=== PATIENT | female | born 2000 | race African-American/Black ===

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

== ENCOUNTER 2021-11-13 10:08 | Inpatient (IN) ==
[2021-11-13] MEDS ORDERED: LACTATED RINGERS 1,000 ML IV ONE (10:57)
[2021-11-13] MEDS ORDERED: CITRIC ACID/SODIUM CITRATE 30 ML UDCUP PO ONE (11:52)
[2021-11-13] MEDS ORDERED: ceFAZolin 2,000 MG/50 ML DUPLEX IV ONE (11:52)
[2021-11-13] MEDS ORDERED: LACTATED RINGERS 1,000 ML IV SCH ×2 (12:00→15:00)
[2021-11-13] MEDS ORDERED: OXYTOCIN 10 UNIT/ML VIAL IM ONE (12:10)
[2021-11-13] MEDS ORDERED: FAMOTIDINE 20 MG/2 ML VIAL IV ONE (12:10)
[2021-11-13] MEDS ORDERED: OXYTOCIN 30 UNIT in DEXTROSE 5% LACTATED RINGERS 1,000 ML IV ONE (12:18)
[2021-11-13] MEDS ORDERED: OXYTOCIN/LR 30 UNIT/1,000 ML BAG IV ONE (12:22)
[2021-11-13 12:31] LABS: Basophils % 0.5 % (0.0-0.8); Eosinophils # 0.1 10*3/uL (0.0-0.87); Eosinophils % 1.4 % (0.00-10.9); Hematocrit 31.4 VOL% (35.7-47.0); Hemoglobin 9.5 GM/DL (12.0-16.0); Immature Granulocytes % 0.6 %; Immature Granulocytes Absolute 0.04 #; Lymphocytes # 1.6 10*3/uL (1.4-4.0); Lymphocytes % 24.4 % (21.3-54.2); Mean Corpuscular HGB Conc 30.3 GM/DL (32-36); Mean Corpuscular Volume 81.6 FL (87-102); Mean Platelet Volume 11.7 FL (9.6-12.0); Monocytes % 11.3 % (1.7-12.7); Neutrophils % 61.8 % (38.7-73.9); Platelet Count 175 T/CUMM (130-400); Red Blood Count 3.85 MC/CUMM (3.8-5.5); Red Cell Distribution Width 15.8 % (9.3-17.3); White Blood Count 6.5 T/CUMM (4-12)
[2021-11-13 12:35] LABS: Albumin 2.2 G/DL (3.4-5.0); Bilirubin,Total 0.5 MG/DL (0.20-1.00); Calcium 8.2 MG/DL (8.5-10.1); Osmolality,Calculated 275.3 MOS/KG (273-304); Potassium 3.6 MMOL/L (3.5-5.1); Total Protein 6.5 G/DL (6.4-8.2)
[2021-11-13] MEDS ORDERED: BUPIVACAINE SPINAL 0.75% 2 ML AMP SPINAL ONE (12:50)
[2021-11-13] MEDS ORDERED: ONDANSETRON 4 MG/2 ML VIAL ONE (12:51)
[2021-11-13] MEDS ORDERED: miSOPROStoL 200 MCG TABLET ONE (13:02)
[2021-11-13] MEDS ORDERED: METHYLERGONOVINE 0.2 MG/1 ML AMP ONE (13:02)
[2021-11-13] MEDS ORDERED: PHENYLEPHRINE 1 MG/10 ML SYRINGE IV ONE (14:01)
[2021-11-13] MEDS ORDERED: ACETAMINOPHEN INJ 1,000 MG/100 ML VIAL IV ONE (14:19)
[2021-11-13 14:44] LABS: Cord Arterial Blood HCO3 21.6 MMOL/L
[2021-11-13 14:45] LABS: Bilirubin,Urine Negative (Negative); Blood, Urine Moderate mg/dL (Negative); Glucose,Urine (UA) Negative (Negative); Ketones,Urine Negative (Negative); Mucus,Urine Occasional /LPF (Occasional); Nitrite,Urine Negative (Negative); Protein,Urine Negative; RBC,Urine 14 /HPF (0-4); Squamous Epithelial Cell,Urine Occasional /HPF (0-10); Urine Appearance CLEAR (Clear); Urine Color Yellow (Yellow); Urine Specific Gravity 1.011 (1.001-1.035)
[2021-11-13 14:46] LABS: Cord Venous Blood HCO3 23.4 MMOL/L; Cord Venous Blood PCO2 43.9 MMHG; Cord Venous Blood PO2 34.3
[2021-11-13] MEDS ORDERED: ACETAMINOPHEN 325 MG TABLET PO PRN (14:52)
[2021-11-13] MEDS ORDERED: SIMETHICONE CHEW 80 MG TABLET PO PRN (14:52)
[2021-11-13] MEDS ORDERED: OXYTOCIN/LR 20 UNIT/1,000 ML BAG IV ONE (14:52)
[2021-11-13] MEDS ORDERED: ONDANSETRON 4 MG/2 ML VIAL IV PRN (14:52)
[2021-11-13] MEDS ORDERED: RHO(D) IMMUNE GLOBULIN 300 MCG SYRINGE IM ONE (14:52)
[2021-11-13] MEDS ORDERED: HYDROmorphone 2 MG/1 ML VIAL IV ONE (16:58)
[2021-11-13] MEDS: DOCUSATE SODIUM 100 MG CAPSULE PO SCH (21:36)
[2021-11-13] MEDS: ACETAMINOPHEN 500 MG TABLET PO SCH (21:36)
[2021-11-13 22:03] LABS: Basophils % 0.3 % (0.0-0.8); Eosinophils # 0.1 10*3/uL (0.0-0.87); Eosinophils % 0.5 % (0.00-10.9); Hematocrit 28.7 VOL% (35.7-47.0); Hemoglobin 8.8 GM/DL (12.0-16.0); Immature Granulocytes % 0.4 %; Immature Granulocytes Absolute 0.04 #; Lymphocytes # 2.5 10*3/uL (1.4-4.0); Lymphocytes % 26.7 % (21.3-54.2); Mean Corpuscular HGB Conc 30.7 GM/DL (32-36); Mean Corpuscular Volume 80.4 FL (87-102); Mean Platelet Volume 11.2 FL (9.6-12.0); Monocytes % 9.3 % (1.7-12.7); Neutrophils % 62.8 % (38.7-73.9); Platelet Count 148 T/CUMM (130-400); Red Blood Count 3.57 MC/CUMM (3.8-5.5); Red Cell Distribution Width 15.4 % (9.3-17.3); White Blood Count 9.3 T/CUMM (4-12)
[2021-11-13 23:46] LABS: Platelet Estimate Adequate
[2021-11-13 23:48] LABS: Microcytosis 1+; Polychromasia 1+
[2021-11-14] MEDS: ACETAMINOPHEN 500 MG TABLET PO SCH (03:00)
[2021-11-14 06:11] LABS: Basophils % 0.4 % (0.0-0.8); Eosinophils # 0.1 10*3/uL (0.0-0.87); Eosinophils % 1.4 % (0.00-10.9); Hematocrit 26.9 VOL% (35.7-47.0); Hemoglobin 8.3 GM/DL (12.0-16.0); Immature Granulocytes % 0.4 %; Immature Granulocytes Absolute 0.03 #; Lymphocytes # 2.8 10*3/uL (1.4-4.0); Lymphocytes % 33.2 % (21.3-54.2); Mean Corpuscular HGB Conc 30.9 GM/DL (32-36); Mean Corpuscular Volume 80.5 FL (87-102); Mean Platelet Volume 11.8 FL (9.6-12.0); Neutrophils % 53.6 % (38.7-73.9); Platelet Count 152 T/CUMM (130-400); Red Blood Count 3.34 MC/CUMM (3.8-5.5); Red Cell Distribution Width 15.5 % (9.3-17.3); White Blood Count 8.3 T/CUMM (4-12)
[2021-11-14 06:33] LABS: Eosinophils 4 % (0-10); Lymphocytes 25 % (20-55); Platelet Estimate Adequate; Segmented Neutrophils 66 % (50-85); Total Cells Counted 100
[2021-11-14 06:34] LABS: Hypochromia 1+; Microcytosis 1+
[2021-11-14] MEDS: DOCUSATE SODIUM 100 MG CAPSULE PO SCH (07:49)
[2021-11-14] MEDS: METOCLOPRAMIDE 10 MG TABLET PO SCH ×2 (07:50→16:01)
[2021-11-14] MEDS: IBUPROFEN 800 MG TABLET PO PRN (07:50)
[2021-11-14] MEDS ORDERED: FERROUS SULFATE 325 MG TABLET PO SCH (09:00)
[2021-11-14] MEDS: FERROUS SULFATE 325 MG TABLET PO SCH (09:51)
[2021-11-14] MEDS: MULTIVITAMIN (PRENATAL) TABLET PO SCH (09:53)
[2021-11-14] MEDS: MAGNESIUM HYDROXIDE SUSP 30 ML UDCUP PO PRN (16:01)
[2021-11-14] MEDS ORDERED: SERTRALINE 50 MG TABLET PO SCH (21:00)
[2021-11-15] MEDS: DOCUSATE SODIUM 100 MG CAPSULE PO SCH ×2 (00:21→08:45)
[2021-11-15] MEDS: METOCLOPRAMIDE 10 MG TABLET PO SCH ×2 (00:22→08:45)
[2021-11-15] MEDS: FERROUS SULFATE 325 MG TABLET PO SCH ×2 (00:22→08:50)
[2021-11-15 07:24] VITALS: BP 150/90
[2021-11-15] MEDS: MULTIVITAMIN (PRENATAL) TABLET PO SCH (08:45)
[2021-11-15] MEDS: MAGNESIUM HYDROXIDE SUSP 30 ML UDCUP PO PRN (08:45)
[2021-11-15] MEDS: IBUPROFEN 800 MG TABLET PO PRN (08:46)
== END 2021-11-15 11:50 | disposition home or self-care (01) | DRG 540 ==
LOC: N.LD 10:08 → N.OB 17:44
PROVIDERS: ADMIT Obstetrics & Gynecology; ATTEND Obstetrics & Gynecology
PROC: LDCSECT (ICD-10-PCS; 2021-11-13 13:00)